=== PATIENT | male | born 1975 | race Caucasian/White ===

== ENCOUNTER → 2021-02-03 12:58 | Outpatient (CLI) | payer OTHER, SELFPAY ==
--- NOTE | ~2021-02-03 | XR_ITS ---
XR hand RT 2V DATE: 02/03/2021 13:24 INDICATION: Bilateral hand pain, right fifth finger pain. No injury. TECHNIQUE: AP and lateral views COMPARISON: None FINDINGS: No fracture or dislocation, periosteal reaction or bone destruction. IMPRESSION: No significant abnormality Reviewed, dictated and finalized at location A. IMPRESSION: No significant abnormality
--- NOTE | ~2021-02-03 | XR_ITS ---
XR hand LT 2V DATE: 02/03/2021 13:25 INDICATION: Bilateral hand pain. Left second digit pain. No injury. TECHNIQUE: AP and lateral views COMPARISON: None FINDINGS: Moderate osteoarthritic change at the second metacarpophalangeal joint No fracture or dislo cation, periosteal reaction or bone destruction or significant joint space narrowing, erosive change or chondrocalcinosis. IMPRESSION: Osteoarthritis of the second metacarpophalangeal joint Reviewed, dictated and finalized at location A.
== END ==
PROVIDERS: PCP Emergency Medicine; Visit Provider Emergency Medicine
DX: M79.641 Pain in right hand (principal); M19.042 Primary osteoarthritis, left hand
CPT/HCPCS: 73120